=== PATIENT | male | born 1970 | race Caucasian/White ===

== ENCOUNTER 2020-07-31 15:21 | Emergency (ER) | payer SELFPAY ==
--- NOTE | 2020-07-31 20:46 | RAD REPORT ---
EXAM DESCRIPTION: Hank Single View07/31/2020 8:40 pm CLINICAL HISTORY: Cough COMPARISON: none FINDINGS: The lungs appear clear of acute infiltrate. The heart is normal size IMPRESSION: No acute abnormalities displayed
[2020-07-31] MEDS ORDERED: KETOROLAC 30 MG/ML INJ ONE (20:51)
--- NOTE | 2020-07-31 21:19 | ER ---
Nurse's Notes [facility] Name: Toribio Barroso Age: 49 yrs Sex: Male : 1970 Arrival Date: 07/31/2020 Time: 15:25 Bed 18 Private MD: Diagnosis: Idiopathic gout, right ankle and foot Presentation: 07/31 15:56 Chief complaint: Patient states: bilateral foot and knee pain that began 5 days ago. Pt ss believes this is a gout flare up as it is similar to the past episodes he has had. R foot and knee is worse. Also c/o cough x 5 weeks. Coronavirus screen: Client presents with at least one sign or symptom that may indicate coronavirus-19. Standard/surgical mask placed on the client. Ebola Screen: Patient denies exposure to infectious person. Patient denies travel to an Ebola-affected area in the 21 days before illness onset. Initial Sepsis Screen: Does the patient meet any 2 criteria? No. Patient's initial sepsis screen is negative. Does the patient have a suspected source of infection? No. Patient's initial sepsis screen is negative. Risk Assessment: Do you want to hurt yourself or someone else? Patient reports no desire to harm self or others. Onset of symptoms was July 26, 2020. 15:56 Method Of Arrival: EMS: [facility] 15:56 Acuity: RALPH 3 ss Historical: - Allergies: 15:59 No Known Allergies; ss - PMHx: 15:59 Hypertension; Gout; Depression; Anxiety; chronic insomnia; ss - Immunization history:: Adult Immunizations up to date. - Social history:: Smoking status: Patient denies any tobacco usage or history of. Screenin:15 Abuse screen: Denies threats or abuse. Nutritional screening: No deficits noted. jb4 Tuberculosis screening: No symptoms or risk factors identified. Fall Risk None identified. Assessment: 20:15 General: Appears in no apparent distress. uncomfortable, Behavior is calm, cooperative, jb4 appropriate for age. Pain: Complains of pain in right foot and right knee Pain does not radiate. Pain currently is 10 out of 10 on a pain scale. Neuro: Level of Consciousness is awake, alert, obeys commands, Oriented to person, place, time, situation. Cardiovascular: Patient's skin is warm and dry. Respiratory: Airway is patent Respiratory effort is even, unlabored, Respiratory pattern is regular, symmetrical. GI: No signs and/or symptoms were reported involving the gastrointestinal system. : No signs and/or symptoms were reported regarding the genitourinary system. EENT: No signs and/or symptoms were reported regarding the EENT system. Derm: Skin is intact, Skin is pink, warm \T\ dry. Musculoskeletal: Circulation, motion, and sensation intact. Range of motion: intact in all extremities. 21:15 Reassessment: Patient appears in no apparent distress at this time. Patient and/or jb4 family updated on plan of care and expected duration. Pain level reassessed. Patient is alert, oriented x 3, equal unlabored respirations, skin warm/dry/pink. 22:30 Reassessment: Patient appears in no apparent distress at this time. Patient and/or jb4 family updated on plan of care and expected duration. Pain level reassessed. Patient is alert, oriented x 3, equal unlabored respirations, skin warm/dry/pink. Vital Signs: 15:56 BP 149 / 101; Pulse 114; Resp 16; Temp 98.7(TE); Pulse Ox 99% on R/A; Weight 127.01 kg; ss Height 5 ft. 10 in. (177.80 cm); Pain 10/10; 21:15 BP 133 / 94; Pulse 90; Resp 16; Pulse Ox 100% on R/A; jb4 22:15 BP 140 / 72; Pulse 93; Resp 16; Pulse Ox 100% on R/A; jb4 15:56 Body Mass Index 40.18 (127.01 kg, 177.80 cm) ED Course: 15:25 Patient arrived in ED. rg4 15:58 Triage completed. ss 15:59 Arm band placed on left wrist. ss 19:30 Nick Morales MD is Attending Physician. tw4 20:05 Dinesh Iyer, RICHA is Primary Nurse. jb4 20:15 Patient has correct armband on for positive identification. Bed in low position. Call jb4 light in reach. Side rails up X 1. 20:40 CXR XRAY In Process Unspecified. EDMS 20:50 Flu Sent. jb4 20:50 COVID-19 Sent. jb4 22:30 No provider procedures requiring assistance completed. Patient did not have IV access jb4 during this emergency room visit. Administered Medications: 20:50 Drug: TORadol 60 mg Route: IM; Site: right gluteus; jb4 21:30 Follow up: Response: No adverse reaction; Pain is decreased jb4 22:20 Drug: traMADol 50 mg Route: PO; jb4 22:29 Follow up: Response: No adverse reaction jb4 Outcome: 21:18 Discharge ordered by . tw4 22:30 Discharged to home via wheelchair, with friend. jb4 22:30 Condition: stable 22:30 Discharge instructions given to patient, Instructed on discharge instructions, follow up and referral plans. medication usage, Demonstrated understanding of instructions, follow-up care, medications, Prescriptions given X 1. 22:39 Patient left the ED. jb4 Addendum: 08/03/2020 16:50 Addendum: COVID-19 Result: Negative result given to RN to notify pt. Unable to leave s v voice mail due to the number provided was either not a working number, the voice mail has not been set up, or the voice mailbox is full.. Other: home # on demographics is to the [facility] [employer]. 08/07/2020 16:40 Addendum: COVID-19 Result: Negative result given to RN to notify pt. Other: Pt called a a5 the ER requesting COVID-19 result, negative result was given. Signatures: Dispatcher [employer] Lenka Sanchez, RN Kadie Holt RN RN aa5 Carrie Perdue RN RN ss Garcia, Rubi 4 Dinesh Iyer RN RN jb4 Nick Morales MD MD tw4
--- NOTE | 2020-07-31 21:19 | EDPHYS ---
Physician Documentation [facility] Name: Toribio Barroso Age: 49 yrs Sex: Male : 1970 Arrival Date: 07/31/2020 Time: 15:25 Bed 18 Private MD: ED Physician Nick Morales HPI: 07/31 20:27 This 49 yrs old Male presents to ER via EMS with complaints of Feet Swelling, tw4 Knee Pain, Foot Pain. 20:27 The patient presents with pain. The complaints affect the right foot. Onset: The tw4 symptoms/episode began/occurred 5 day(s) ago. Modifying factors: The symptoms are alleviated by nothing, the symptoms are aggravated by nothing. Severity of symptoms: At their worst the symptoms were moderate, in the emergency department the symptoms are unchanged. The patient has not experienced similar symptoms in the past. Historical: - Allergies: 15:59 No Known Allergies; ss - PMHx: 15:59 Hypertension; Gout; Depression; Anxiety; chronic insomnia; ss - Immunization history:: Adult Immunizations up to date. - Social history:: Smoking status: Patient denies any tobacco usage or history of. ROS: 20:27 MS/extremity: Positive for pain, swelling, tenderness, Negative for injury or acute tw4 deformity, abrasion, bite, deformity, ecchymosis, erythema, paresthesias, puncture, rash. 20:27 Constitutional: Negative for fever, chills, and weight loss, Cardiovascular: Negative for chest pain, palpitations, and edema, Respiratory: Negative for shortness of breath, cough, wheezing, and pleuritic chest pain, Abdomen/GI: Negative for abdominal pain, nausea, vomiting, diarrhea, and constipation, Back: Negative for injury and pain, Skin: Negative for injury, rash, and discoloration, Neuro: Negative for headache, weakness, numbness, tingling, and seizure. Exam: 20:27 Constitutional: This is a well developed, well nourished patient who is awake, alert, tw4 and in no acute distress. Head/Face: Normocephalic, atraumatic. Chest/axilla: Normal chest wall appearance and motion. Nontender with no deformity. No lesions are appreciated. Cardiovascular: Regular rate and rhythm with a normal S1 and S2. No gallops, murmurs, or rubs. Normal PMI, no JVD. No pulse deficits. Respiratory: Lungs have equal breath sounds bilaterally, clear to auscultation and percussion. No rales, rhonchi or wheezes noted. No increased work of breathing, no retractions or nasal flaring. Abdomen/GI: Soft, non-tender, with normal bowel sounds. No distension or tympany. No guarding or rebound. No evidence of tenderness throughout. Back: No spinal tenderness. No costovertebral tenderness. Full range of motion. Neuro: Awake and alert, GCS 15, oriented to person, place, time, and situation. Cranial nerves II-XII grossly intact. Motor strength 5/5 in all extremities. Sensory grossly intact. Cerebellar exam normal. Normal gait. 20:27 Musculoskeletal/extremity: Extremities: noted in the right first toe: erythema, pain, swelling, tenderness. Vital Signs: 15:56 BP 149 / 101; Pulse 114; Resp 16; Temp 98.7(TE); Pulse Ox 99% on R/A; Weight 127.01 kg; ss Height 5 ft. 10 in. (177.80 cm); Pain 10/10; 21:15 BP 133 / 94; Pulse 90; Resp 16; Pulse Ox 100% on R/A; jb4 22:15 BP 140 / 72; Pulse 93; Resp 16; Pulse Ox 100% on R/A; jb4 15:56 Body Mass Index 40.18 (127.01 kg, 177.80 cm) ss MDM: 20:16 Patient medically screened. tw4 22:35 Differential diagnosis: fracture, sprain, penetrating trauma. Data reviewed: vital tw4 signs, nurses notes. Data reviewed: lab test result(s), Flu: negative radiologic studies, plain films. Data interpreted: Pulse oximetry: Interpretation: normal. Counseling: I had a detailed discussion with the patient and/or guardian regarding: the historical points, exam findings, and any diagnostic results supporting the discharge/admit diagnosis. Special discussion: I discussed with the patient/guardian in detail that at this point there is no indication for admission to the hospital. It is understood, however, that if the symptoms persist or worsen the patient needs to return immediately for re-evaluation. 07/31 20:26 Order name: COVID-19 tw 07/31 20:26 Order name: Flu; Complete Time: 21:38 tw4 07/31 21:38 Interpretation: Within normal limits. 07/31 20:26 Order name: CXR XRAY; Complete Time: 22:01 4 07/31 22:01 Interpretation: No acute disease. 07/31 20:26 Order name: Document PUI#; Complete Time: 20:30 4 07/31 20:26 Order name: Droplet/Contact Precautions; Complete Time: 20:30 4 07/31 20:26 Order name: Labs collected and sent; Complete Time: 20:50 4 07/31 20:26 Order name: Notify [facility] Dept [phone]/ ; Complete Time: 20:30 4 07/31 20:26 Order name: O2 Per Protocol; Complete Time: 20:50 tw4 Administered Medications: 20:50 Drug: TORadol 60 mg Route: IM; Site: right gluteus; jb4 21:30 Follow up: Response: No adverse reaction; Pain is decreased jb4 22:20 Drug: traMADol 50 mg Route: PO; jb4 22:29 Follow up: Response: No adverse reaction jb4 Disposition: 07/31/20 21:18 Discharged to Home. Impression: Idiopathic gout, right ankle and foot. - Condition is Stable. - Discharge Instructions: Gout, Low-Purine Diet. - Prescriptions for Colchicine- Probenecid 0.5-500 mg Oral Tablet - take 1 tablet by ORAL route every 1 hour up to 3 hours; 3 tablet. - Medication Reconciliation Form, Thank You Letter, Antibiotic Education, Prescription Opioid Use form. - Follow up: Private Physician; When: Upon discharge from the Emergency Department; Reason: Recheck today's complaints, Continuance of care, Re-evaluation by your physician. - Problem is new. - Symptoms have improved. Signatures: Dispatcher [employer] EDAR Carrie Perdue RN RN ss Bryson, James, RN RN jb4 Nick Morales MD MD tw4 Corrections: (The following items were deleted from the chart) 22:39 21:18 07/31/2020 21:18 Discharged to Home. Impression: Idiopathic gout, right ankle and jb4 foot. Condition is Stable. Forms are Medication Reconciliation Form, Thank You Letter, Antibiotic Education, Prescription Opioid Use. Follow up: Private Physician; When: Upon discharge from the Emergency Department; Reason: Recheck today's complaints, Continuance of care, Re-evaluation by your physician. Problem is new. Symptoms have improved. tw4
[2020-07-31] MEDS ORDERED: TRAMADOL HCL 50 MG TAB ONE (22:21)
[2020-07-31 23:57] VITALS: O2SAT 100
[2020-07-31 23:58] VITALS: BP 140/72
[2020-08-01 00:37] VITALS: TEMP 98.7
== END 2020-07-31 22:39 | disposition home or self-care (01) ==
LOC: ER 15:21
DX: M10.071 Idiopathic gout, right ankle and foot (principal); Z20.828 Contact with and (suspected) exposure to other viral communicable diseases; I10 Essential (primary) hypertension
CPT/HCPCS: 71045; 87804; 96372; 99284; U0002